=== PATIENT | male | born 1990 | race Caucasian/White ===

== ENCOUNTER 2016-09-13 10:45 | Emergency (ER) | payer BC ==
[~2016-09-13 10:45] MED LIST: BACITRACIN15 GM OINT EXT; FLEXERIL10 MG PO; FLONASE 0.05% N16 G1; IBUPROFEN800 MG PO; NO MEDICATIONS; ZYRTEC-D T1 TAB.SR1 PO
== END 2016-09-13 12:03 | disposition home or self-care (01) ==
LOC: SED 10:45
DX: S91.311A Laceration without foreign body, right foot, initial encounter (principal); Z23 Encounter for immunization; W26.9XXA Contact with unspecified sharp object(s), initial encounter; Y92.9 Unspecified place or not applicable
CPT/HCPCS: 90471; 90715; 99283